=== PATIENT | female | born 1965 | race Caucasian/White ===

== ENCOUNTER 2019-03-07 18:17 | Emergency (ER) | payer MEDICARE, MEDICAID ==
[~2019-03-07] VITALS: Ht 165.1 cm; Wt 109.1 kg
[~2019-03-07 18:17] MED LIST: ARIP10TA8 PO; BUPR75 PO; FOLI1TAB15 PO; GABA-531 PO; HYDR-4031 PO; IBUP-2070 PO; INSU100C4 SQ; LISI10TA PO; METF-444 PO; MULT1CAP32 PO; RANI150C PO; SERT100T12 PO; THIA100T75 PO
[2019-03-07] MEDS ORDERED: RIVA20TA PO (18:42)
[2019-03-07] MEDS ORDERED: ASPIRIN 81 MG CHEWABLE TABLET PO ONE (19:15)
[2019-03-07] MEDS ORDERED: RANI150T7 PO (19:24)
[2019-03-07] MEDS ORDERED: INSLAN SQ (19:24)
[2019-03-07] MEDS ORDERED: FOLI1 PO (19:24)
[2019-03-07 19:41] LABS: BASOPHILS % (AUTO) 0.4 % (0.0-2.0); EOSINOPHILS % (AUTO) 1.6 % (1.0-6.0); HEMOGLOBIN 7.6 g/dL (12.0-16.0); LYMPHOCYTES # (AUTO) 3.7 K/uL (1.0-4.8); LYMPHOCYTES % (AUTO) 57.4 % (22.0-44.0); MEAN CORPUSCULAR HEMOGLOBIN 25.2 pg (26.0-34.0); MEAN CORPUSCULAR HGB CONC 31.7 G/dL (31.0-37.0); MEAN CORPUSCULAR VOLUME 80 fL (80-100); MONOCYTES # (AUTO) 0.5 K/uL (0.1-1.0); MONOCYTES % (AUTO) 8.2 % (2.0-9.0); NEUTROPHILS # (AUTO) 2.1 K/uL (1.8-7.7); NEUTROPHILS % (AUTO) 32.4 % (40.0-70.0); PLATELET COUNT (AUTO) 166 K/uL (150-450); RED BLOOD CELL COUNT(AUTO) 3.02 MIL/uL (4.00-5.20); RED CELL DISTRIBUTION WIDTH 25.8 % (11.5-14.5)
[2019-03-07 19:47] LABS: ANION GAP 9 mmol/L (8-16); CALCIUM, TOTAL 8.4 mg/dL (8.8-10.5); CARBON DIOXIDE 26 mmol/L (22-29); CHLORIDE 107 mmol/L (98-107); CREATININE 0.65 mg/dL (0.60-1.30); GLOMERULAR FILTR. RATE CALC > 60 mL/min (>60); GLUCOSE,RANDOM 116 mg/dL (70-110); POTASSIUM 4.2 mmol/L (3.5-5.1); SODIUM SERUM 142 mmol/L (136-145); UREA NITROGEN, BLOOD 10 mg/dL (7-18)
[2019-03-07 19:52] LABS: INR 1.1 (0.9-1.1); PROTHROMBIN TIME 10.9 SEC (9.4-11.6)
[2019-03-07 20:10] LABS: B-TYPE NATRIURETIC PEPTIDE 14 pg/mL (0-100)
[2019-03-07 20:13] LABS: ALANINE AMINOTRANSFERASE 28 U/L (12-78); ALBUMIN 3.2 g/dL (3.4-5.0); ALKALINE PHOSPHATASE 102 U/L (46-116); ASPARTATE AMINOTRANSFERASE 39 U/L (15-37); BILIRUBIN,TOTAL 0.1 mg/dL (0.1-1.0); CREATINE KINASE, TOTAL ONLY 106 U/L (26-192); TOTAL PROTEIN, SERUM 7.4 g/dL (6.4-8.2)
[2019-03-07 20:28] LABS: PLATELET MORPHOLOGY COMMENT NORMAL
[2019-03-07 21:59] VITALS: BP 108/57
[2019-03-07 23:00] LABS: APPEARANCE,URINE CLEAR (CLEAR); BILIRUBIN,URINE NEGATIVE (NEGATIVE); GLUCOSE, URINE (UA) NEGATIVE (NEGATIVE); KETONES,URINE NEGATIVE (NEGATIVE); LEUKOCYTE ESTERASE ,URINE NEGATIVE (NEGATIVE); NITRATE,URINE NEGATIVE (NEGATIVE); OCCULT BLOOD,URINE NEGATIVE (NEGATIVE); PROTEIN,URINE NEGATIVE (NEGATIVE); UROBILINOGEN,URINE 0.2 mg/dL (<=1.0)
== END 2019-03-07 23:26 | disposition home or self-care (01) ==
LOC: EMS 18:19
DX: D64.9 Anemia, unspecified (principal); R07.89 Other chest pain; R07.9 Chest pain, unspecified; F31.9 Bipolar disorder, unspecified; E11.9 Type 2 diabetes mellitus without complications; F17.210 Nicotine dependence, cigarettes, uncomplicated; Z79.4 Long term (current) use of insulin; Z79.899 Other long term (current) drug therapy; Z88.1 Allergy status to other antibiotic agents; Z88.0 Allergy status to penicillin
CPT/HCPCS: 93005

== ENCOUNTER 2020-06-12 18:40 | Emergency (ER) | payer MEDICARE, MEDICAID ==
[~2020-06-12] VITALS: Ht 172.7 cm; Wt 102.3 kg
[~2020-06-12 18:40] MED LIST changes: +FOLI-130 PO; -FOLI1TAB15 PO; +GABA-1181 PO; -GABA-531 PO; +INSLAN SQ; -INSU100C4 SQ; -RANI150C PO; +RANI150T7 PO; +RIVA20TA PO; +SERT-162 PO; -SERT100T12 PO; -THIA100T75 PO; +THIA100T80 PO
[2020-06-12] MEDS ORDERED: ACETAMINOPHEN 500 MG TABLET PO ONE (20:45)
[2020-06-12 21:23] VITALS: BP 129/79
== END 2020-06-12 22:00 | disposition home or self-care (01) ==
LOC: EMS 18:40
DX: S83.92XA Sprain of unspecified site of left knee, initial encounter (principal); F31.9 Bipolar disorder, unspecified; E11.9 Type 2 diabetes mellitus without complications; Z87.891 Personal history of nicotine dependence; Z79.899 Other long term (current) drug therapy; Z79.4 Long term (current) use of insulin; Z88.0 Allergy status to penicillin; Z88.1 Allergy status to other antibiotic agents; X58.XXXA Exposure to other specified factors, initial encounter; Y93.89 Activity, other specified; Y92.89 Other specified places as the place of occurrence of the external cause; Y99.8 Other external cause status
CPT/HCPCS: 29505; 99283